=== PATIENT | female | born 1985 | race Caucasian/White ===

== ENCOUNTER 2018-08-09 12:18 | Emergency (ER) | payer MEDICAID ==
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
[2018-08-09 13:53] VITALS: BP 120/68
== END 2018-08-09 13:54 | disposition home or self-care (01) ==
DX: S06.0X0A Concussion without loss of consciousness, initial encounter (principal); W22.8XXA Striking against or struck by other objects, initial encounter; F17.200 Nicotine dependence, unspecified, uncomplicated